=== PATIENT | female | born 2000 | race Two or more races ===

== ENCOUNTER 2022-11-06 23:36 | Emergency (ER) | payer BC ==
[~2022-11-06] VITALS: Ht 167.6 cm; Wt 77.1 kg
[2022-11-07] MEDS ORDERED: CEPHALEXIN500 M1 PO (00:56)
== END 2022-11-07 | disposition home or self-care (01) ==
LOC: ER 23:36
DX: J02.9 Acute pharyngitis, unspecified (principal)